=== PATIENT | female | born 1985 | race Caucasian/White ===

== ENCOUNTER → 2016-06-07 | Day surgery (SDC) | payer OTHER ==
--- NOTE | 2016-06-04 18:20 | TH ---
cc: SANJUANA FONTANAO DATE 06/04/16 DATE OF 1985. PROCEDURE TO BE PERFORMED Removal and replacement of implants, Vini SRX 495 HISTORY OF PRESENT ILLNESS The patient is a 30-year-old female who had a deflation of the right breast implant last week. She is status post augmentation mammoplasty with a saline device back and 09/17/2010. She wishes to have those replaced. PAST MEDICAL HISTORY Otherwise unremarkable. She did have initial augmentation in 2004. ALLERGIES No allergies. REVIEW OF SYSTEMS Unremarkable. PHYSICAL EXAM CONSTITUTIONAL: General appearance. The patient is a well-developed female in no acute distress. Body habitus is within normal limits. There appear to be no deformities. Appears to have attention to grooming. HEENT: Eyes Conjunctivae and lids are within normal anatomical limits. The pupils are reactive to light and accommodation, size, and symmetry. There is no evidence of exudate, hemorrhage, or vessel change. Ears, mouth, nose, and throat The external inspection of the ears and nose fails to demonstrate any pathology, scars, lesions, or masses. Nasal mucosa, septum, and turbinates appear to be well hydrated as well as the lips and gums. No evidence of masses in the hypopharynx or submental area. RESPIRATORY: The patient shows no evidence of intercostal refractions. Otherwise, lungs are clear to auscultation without any abnormal sounds or rubs. CARDIOVASCULAR: The patient has a normal heart rate and rhythm. There is no evidence of noticed carotid bruits. Femoral pulses and pedal pulses in extremities are also within normal limits. GASTROINTESTINAL/ABDOMEN: Soft with no evidence of masses or tenderness. Unable to palpate the liver or spleen. No evidence of hernia. MUSCULOSKELETAL: Appears to be reasonable range of motion on the head, neck, spine, ribs, pelvis, right upper extremity, left upper extremity, right lower extremity, and left lower extremity. The muscle strength and tone appears to be equal and within accepted limits. SKIN: There is no rashes, lesions, or ulcers on the trunk, back, and extremities. NEUROLOGICAL: Examination is grossly normal. PSYCHIATRIC: The patient appears to have good orientation of time, place, and person. Does not appear to have any mood effects of depression, anxiety, or agitation. No evidence of pathology in her breast otherwise. PLAN As above. MD BETHEL Pham /3:51 PM /6:02 PM
[~2016-06-07] MED LIST: ACETAMINOPHEN 1000 MG/100 ML VIAL IV ONE; ACETAMINOPHEN/HYDROcodone 325 MG/5 MG TAB ONE; BACITRACIN IM FOR SOLN 50,000 UNIT VIAL ONE; BUPIVACAINE/EPINEPHRINE 0.25% 50 ML VIAL ONE; GENTAMICIN SULFATE 80 MG/2 ML VIAL ONE; LACTATED RINGER'S 1000 ML INJ 1,000 ML ONE; LIDOCAINE 1%/EPINEPHrine 1:100,000 SOLN 30 ML VIAL ONE; MIDAZOLAM HCL 2 MG/2 ML VIAL ONE; ONDANSETRON HCL 4 MG/2 ML VIAL IV PUSH ONE; PERC5TAB12 PO; PREN1TAB30; PROPOFOL 200 MG/20 ML AMP IV ONE; SODIUM CHLORIDE 0.9% 20 ML VIAL ONE; ceFAZolin INJ 1,000 MG VIAL ONE
--- NOTE | 2016-06-07 10:08 | TN ---
cc: SKIP HOLBROOK M.D. DATE OF SURGERY: 06/07/2016 PREOPERATIVE DIAGNOSIS Deflation ___ implant, right. POSTOPERATIVE DIAGNOSIS Deflation ___ implant, right. PROCEDURE Removal, replacement of implant. SURGEON Skip Holbrook MD TRAINING MANAGER Karime Arboleda, MS III ANESTHESIA LMA general plus a breast block, total of 6 ccs of 1% lidocaine with epinephrine. ESTIMATED BLOOD LOSS Minimal. COMPLICATIONS None. INTRAOPERATIVE FINDINGS For the right breast and this had a leak at the valve place in the same area. The implants removed were high profile 400 from the implants replaced with a SR X Natrelle Inspira gels 495 ccs, serial number of the right breast implant device [id number] and on the left breast [id number]. PROCEDURE IN DETAIL She was properly consented, marked and anesthetized. The skin was sterilized with Betadine solution, sterile draping applied, breast block applied and I applied a Dermabond on the nipple-areolar mammary ducts. Through the previous infra-areolar incision a pocket was found and the implant was removed. Irrigation with antibiotic solution was carried out finding the anatomy in good shape, proceeded and performed an isolation of the skin, introduction of the implant. The contralateral side was approached exactly in the same manner, finding no pathology whatsoever. Implants were kept for further brick setter analysis after proper dissinfection. The patient was sat up, blunt touch ups were done to achieve best symmetry possible and ___ the patient had a little bit of ptosis that actually was much improved with this new implants. Either way multiple 2-0 Monocryl suture layer closure was done utilizing at the capsule, breast parenchyma, dermis and subcu. After Mastisol Steri-Strips were applied, the patient was awakened, extubated in operating room and transferred back to postanesthesia care unit in stable condition. No complications were appreciated. The patient tolerated the procedure fairly well. The patient also underwent the application of a snug brassiere. MD J LUIS Pham/[facility] /8:25 AM /10:01 AM
== END | disposition home or self-care (01) ==
LOC: ESDC 06:19
PROVIDERS: ATTEND Plastic Surgery
DX: Z41.1 Encounter for cosmetic surgery (principal)
CPT/HCPCS: 00402; 19325; 19328; C1789; J0131; J0690; J1580; J2250; J2405; J3010; J7120